=== PATIENT | female | born 1995 | race African-American/Black ===

== ENCOUNTER 2022-01-15 21:08 | Emergency (ER) | payer OTHER, BC, SELFPAY ==
--- NOTE | ~2022-01-15 | XR_ITS ---
EXAMINATION: XR hand RT min 3V INDICATION: Right hand pain TECHNIQUE: Three views of the right hand are obtained. COMPARISON: None available FINDINGS: There is no fracture, dislocation, or subluxation. The bones, soft tissues, and joint space s are normal. IMPRESSION: 1. No acute osseous abnormality. Reviewed, dictated and finalized at location F.
--- NOTE | ~2022-01-15 | XR_ITS ---
EXAMINATION: XR knee RT 2V DATE: 01/15/2022 21:51 INDICATION: Right knee pain TECHNIQUE: Two views of the right knee were obtained. COMPARISON: None. FINDINGS: Alignment is normal. No fracture or osteochondral lesion. Joint spaces are normal with no e rosions. No joint effusion/synovitis. Soft tissues are unremarkable. IMPRESSION: 1. No acute osseous abnormality. Reviewed, dictated and finalized at location F.
--- NOTE | ~2022-01-15 | XR_ITS ---
EXAMINATION: XR tibia fibula LT 2V INDICATION: Left leg pain TECHNIQUE: Two views of the left tibia and fibula are obtained. COMPARISON: None available FINDINGS: There is anterior soft tissue swelling overlying the proximal tibia. There is no fracture, dislocation, or subluxation. The bones and joint spaces are normal. IMPRESSION: 1. No acute osseous abnormality. Reviewed, dictated and finalized at location F.
[2022-01-15 21:10] VITALS: BP 120/72; PULSE 81; RESP 16; TEMP 36.4; O2SAT 100
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
[2022-01-15] MEDS: ACETAMINOPHEN 500 MG TABLET 1000 MG PO (21:39)
[2022-01-15] MEDS: IBUPROFEN 400 MG TABLET 800 MG PO (21:39)
--- NOTE | 2022-01-15 21:41 | PC.NURSE ---
Pt off floor to radiology.
[2022-01-15 22:39] VITALS: BP 115/62; PULSE 78; RESP 18; TEMP 36.9; O2SAT 100
== END 2022-01-15 22:39 | disposition home or self-care (01) ==
PROVIDERS: Emergency Provider Emergency Medicine
DX: S89.91XA Unspecified injury of right lower leg, initial encounter (principal); S69.91XA Unspecified injury of right wrist, hand and finger(s), initial encounter; S89.92XA Unspecified injury of left lower leg, initial encounter; V43.52XA Car driver injured in collision with other type car in traffic accident, initial encounter
CPT/HCPCS: 73130; 73560; 73590; 99284; A9270

== ENCOUNTER 2022-03-02 12:37 | Emergency (ER) | payer BC, SELFPAY ==
--- NOTE | ~2022-03-02 | CT_ITS ---
EXAMINATION: CT soft tissue neck w con DATE: 03/02/2022 14:40 INDICATION: Fever sore throat and right jaw swelling TECHNIQUE: Computed tomography (CT) of the neck was performed with 75 mL Omnipaque-350 intravenous co ntrast. Automated exposure control and iterative reconstruction technique were employed. The dose-neena gth product was 526.92 mGy-cm. COMPARISON: None FINDINGS: 11 mm peripherally enhancing left thyroid nodule. Bilateral submandibular gland enlargement, slightl y greater on the right. Anterior and posterior cervical lymphadenopathy, measuring up to 2.2 cm on t he right (which corresponds roughly to the radiographic marker). Prominent adenoid tissue. Likely mil dly enlarged palatine tonsils. 1.4 cm rim-enhancing fluid density lesion in the left posterior inferi or palatine tonsil. The superior mediastinum is unremarkable. The airway is unremarkable. Parapha ryngeal and pre-glottic fat planes are preserved. Normal arterial enhancement. The orbits are unre markable. Visualized sinuses and mastoid air cells are well aerated. The lungs are clear. IMPRESSION: 1.4 cm abscess in the left posterior inferior palatine tonsil. Anterior and posterior cervical chain lymphadenopathy. Bilateral submandibular gland enlargement. 11 mm left thyroid nodule, consider nonem ergent, outpatient thyroid ultrasound for further evaluation. Results reported telephonically to Dr. Crawley by Dr. Burgos at 3:40 PM on 03/12/2022. Reviewed, dictated and finalized at location K. IMPRESSION: 1.4 cm abscess in the left posterior inferior palatine tonsil. Anterior and pos terior cervical chain lymphadenopathy. Bilateral submandibular gland enlargemen t. 11 mm left thyroid nodule, consider nonemergent, outpatient thyroid ultrasou nd for further evaluation. Results reported telephonically to Dr. Crawley by Dr. Brugos at 3:40 PM on .
[2022-03-02 12:45] VITALS: BP 135/65; PULSE 115; RESP 19; TEMP 38.5; O2SAT 98
[2022-03-02 13:41] LABS: Basophils Percent Auto 0.1 % (0.2-1.2); Hematocrit 31.7 % (37.0-47.0); Hemoglobin 9.5 g/dL (12.0-15.0); Immature Granulocyte Absolute 0.02 K/mm3 (0.00-0.031); Immature Granulocyte Percent A 0.3 % (0-0.5); Lymphocytes Absolute Auto 0.89 K/mm3 (0.9-3.2); Lymphocytes Percent Auto 11.7 % (18.3-44.2); Mean Corpuscular Hemoglobin 23.3 pg (26-34); Mean Corpuscular Volume 77.7 fl (80-100); Mean Platelet Volume 9.8 fl (7.4-10.4); Monocytes Absolute Auto 0.7 K/mm3 (0.1-0.6); Monocytes Percent Auto 9.2 % (2.6-8.5); Neutrophils Percent Auto 78.7 % (45.5-73.1); Platelet Count Result 292 k/mm3 (150-375); Red Blood Count 4.08 M/mm3 (4.2-5.4); White Blood Count 7.6 K/mm3 (4.5-10.0)
[2022-03-02] MEDS: SODIUM CHLORIDE 0.9% IV 1,000 ML 999 ML IV CONT (13:45)
[2022-03-02] MEDS: KETOROLAC 30 MG/ML VIAL (*BKC) IV PUSH (13:46)
[2022-03-02 13:53] LABS: Alanine Aminotransferase 29 U/L (6-35); Albumin Level 4.5 g/dL (3.5-5.1); Alkaline Phosphatase 61 U/L (38-126); Anion Gap 14 mmol/L (8-16); Aspartate Amino Transferase 42 U/L (14-36); Bilirubin,Total 0.4 mg/dL (0.2-1.3); Blood Urea Nitrogen 13 mg/dL (7-17); Calcium 8.6 mg/dL (8.4-10.2); Carbon Dioxide 25 mmol/L (22-30); Chloride 96 mmol/L (98-107); Estimated CRCL calculation 113 ml/min; Estimated Glomerular Filt Rate > 60; Glucose 100 mg/dL (65-110); Lactic Acid Reflex 1.2 mmol/L (0.7-2.0); Potassium 3.4 mmol/L (3.4-5.0); Sodium 135 mmol/L (137-145)
[2022-03-02 14:09] LABS: Monoscreen Negative (Negative); Negative Monotest Control Negative (Negative); Positive Monotest Control Positive (Positive)
--- NOTE | 2022-03-02 14:13 | ED.GENADULT ---
HPI - General Adult General Chief complaint: Upper Respiratory Infection <Nino Crawley MD - Last Filed: 03/02/22 15:57> Stated complaint: fever, swollen tonsils <Nino Crawley MD - Last Filed: 03/02/22 15:57> Time Seen by Provider: 03/02/22 13:06 <Nino Crawley MD - Last Filed: 03/02/22 15:57> Related Data Allergies/adverse reactions: Allergies Allergy/AdvReac Type Severity Reaction Status Date / Time No Known Allergies Allergy Verified 03/02/22 12:59 <Nino Crawley MD - Last Filed: 03/02/22 15:57> Review of Systems Review of Systems: CONST: fever. HEENT: sore throat C/V: No chest pain RESP: No cough GI: No n/v : No dysuria. M/S: No joint pain. SKIN: No rash. NEURO: [No headache or focal numbness or weakness] PSYCH: [No depression] <Fariba Arellano MD - Last Filed: 03/02/22 17:01> Course Course Emergency Course: CT scan showed a 1.5 cm peritonsillar abscess. <Nino Crawley MD - Last Filed: 03/02/22 15:57> Reevaluation(s) Reevaluation #1: signed out to me (Dr Arellano) by Dr Crawley pending ENT eval; ENT cleared her for dc, rec abx and dose pack, f/u with him in clinic. <Fariba Arellano MD - Last Filed: 03/02/22 17:01> Vital Signs Vital signs: Vital Signs Temperature 101.3 F H 03/02/22 12:45 Pulse Rate 115 H 03/02/22 12:45 Respiratory Rate 19 03/02/22 12:45 Blood Pressure 135/65 03/02/22 12:45 Pulse Oximetry 98 03/02/22 12:45 Oxygen Delivery Room Air 03/02/22 12:45 Temperature 101.3 F H 03/02/22 12:45 Pulse Rate 115 H 03/02/22 12:45 Respiratory Rate 19 03/02/22 12:45 Blood Pressure 135/65 03/02/22 12:45 Pulse Oximetry 98 03/02/22 12:45 Oxygen Delivery Room Air 03/02/22 12:45 <Nino Crawley MD - Last Filed: 03/02/22 15:57> Vital Signs Temperature 101.3 F H 03/02/22 12:45 Pulse Rate 115 H 03/02/22 12:45 Respiratory Rate 19 03/02/22 12:45 Blood Pressure 135/65 03/02/22 12:45 Pulse Oximetry 98 03/02/22 12:45 Oxygen Delivery Room Air 03/02/22 12:45 Temperature 101.3 F H 03/02/22 12:45 Pulse Rate 115 H 03/02/22 12:45 Respiratory Rate 19 03/02/22 12:45 Blood Pressure 135/65 03/02/22 12:45 Pulse Oximetry 98 03/02/22 12:45 Oxygen Delivery Room Air 03/02/22 12:45 <Fariba Arellano MD - Last Filed: 03/02/22 17:01> Medical Decision Making Vital Signs Vital Signs: Vital Signs Temperature 101.3 F H 03/02/22 12:45 Pulse Rate 115 H 03/02/22 12:45 Respiratory Rate 19 03/02/22 12:45 Blood Pressure 135/65 03/02/22 12:45 Pulse Oximetry 98 03/02/22 12:45 Oxygen Delivery Room Air 03/02/22 12:45 Temperature 101.3 F H 03/02/22 12:45 Pulse Rate 115 H 03/02/22 12:45 Respiratory Rate 03/02/22 12:45 Blood Pressure 135/65 03/02/22 12:45 Pulse Oximetry 98 03/02/22 12:45 Oxygen Delivery Room Air 03/02/22 12:45 <Nino Crawley MD - Last Filed: 03/02/22 15:57> Vital Signs Temperature 101.3 F H 03/02/22 12:45 Pulse Rate 115 H 03/02/22 12:45 Respiratory Rate 19 03/02/22 12:45 Blood Pressure 135/65 03/02/22 12:45 Pulse Oximetry 98 03/02/22 12:45 Oxygen Delivery Room Air 03/02/22 12:45 Temperature 101.3 F H 03/02/22 12:45 Pulse Rate 115 H 03/02/22 12:45 Respiratory Rate 19 03/02/22 12:45 Blood Pressure 135/65 03/02/22 12:45 Pulse Oximetry 98 03/02/22 12:45 Oxygen Delivery Room Air 03/02/22 12:45 <Fariba Arellano MD - Last Filed: 03/02/22 17:01> Lab Data Result diagrams: : 03/02/22 13:34 03/02/22 13:34 <Nino Crawley MD - Last Filed: 03/02/22 15:57> Labs: Lab Results 03/02/22 03/02/22 03/02/22 Range/Units 13:34 13:34 13:34 WBC 7.6 (4.5-10.0) K/mm3 RBC 4.08 L (4.2-5.4) M/mm3 Hgb 9.5 L (12.0-15.0) g/dL Hct 31.7 L (37.0-47.0) % MCV 77.7 L (80-100
[2022-03-02] MEDS: AMPICILLIN SULB 3 GM/NS 100 ML 3 GM/100 ML VIAL IVPB (16:21)
--- NOTE | 2022-03-02 17:18 | WPDCN ---
Assessment and Plan Assessment and plan (1) Abscess, peritonsillar: Code(s): J36 - Peritonsillar abscess Status: Acute Assessment and Plan: 10 days of Augmentin b.i.d. [id number] Medrol Dosepak take in a.m. follow-up with me if symptoms do not improve within the next 24 hours even though the or the have improved, follow-up if the symptoms worsen at all, follow-up with symptoms worsen after this SA hendrix of antibiotics or with any recurrent episodes. 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 CT demonstrates I believe may be bilateral peritonsillar abscesses left definitely more loculated than right. Patient does report that in the past 10-20 minutes she feels like her swelling has gone down significantly on both sides. Patient has received Decadron as well as Unasyn in the ER. No antibiotics prior to this no recurrent episodes of tonsillitis. Review of Systems Review of Systems: All systems reviewed & are unremarkable except as noted in HPI and below Meds Home Medications and Allergies Home Medications Medication Instructions Recorded Confirmed Type amoxicillin 875 mg-potassium 1 tablet PO Q12H #20 tabs 03/02/22 Rx clavulanate 125 mg tablet methylprednisolone 4 mg tablets in 4 mg PO DAILY #21 ea 03/02/22 Rx a dose pack (Medrol (Teddy)) Allergies Allergy/AdvReac Type Severity Reaction Status Date / Time No Known Allergies Allergy Verified 03/02/22 12:59 Vital Signs Vital Signs - 24 hr 03/02/22 12:45 Temperature 38.5 C H Pulse Rate 115 H Respiratory Rate 19 Blood Pressure 135/65 Pulse Oximetry 98 Oxygen Delivery Room Air Exam Narrative: Normal ENT exam other than bilateral cervical lymphadenopathy tonsillar exudate of large there is no peritonsillar edema the peritonsillar region is soft I have pushed on both with a gloved finger. Patient tolerated the exam Results Labs CBC & Chem 7: 03/02/22 13:34 03/02/22 13:34 Labs: Short CBC 03/02/22 Range/Units 13:34 WBC 7.6 (4.5-10.0) K/mm3 Hgb 9.5 L (12.0-15.0) g/dL Hct 31.7 L (37.0-47.0) % Plt Count 292 (150-375) k/mm3 BMP 03/02/22 13:34 Sodium 135 L Potassium 3.4 Chloride 96 L Carbon Dioxide 25 BUN 13 Creatinine 0.80 Glucose 100 Calcium 8.6 Liver Function 03/02/22 Range/Units 13:34 Total Bilirubin 0.4 (0.2-1.3) mg/dL AST 42 H (14-36) U/L ALT 29 (6-35) U/L Alkaline Phosphatase 61 (38-126) U/L Albumin 4.5 (3.5-5.1) g/dL AMG Consult Billing Observation Consult [id number] New Pt Lvl 3 Detail
[2022-03-02 17:25] VITALS: BP 106/68; PULSE 80; RESP 16; TEMP 36.6; O2SAT 100
== END 2022-03-02 17:25 | disposition home or self-care (01) ==
PROVIDERS: Emergency Medicine; Emergency Provider Emergency Medicine
DX: J36 Peritonsillar abscess (principal)
CPT/HCPCS: 36415; 70491; 80053; 81025; 83605; 85025; 86308; 87081; 87880; 96361; 96365; 96375; 99284; J0131; J0295; J1100; J1885; J7030; Q9967

== ENCOUNTER 2025-02-20 16:02 | Outpatient (CLI) | payer BC, SELFPAY ==
--- NOTE | ~2025-02-20 | CT_ITS ---
CLINICAL INDICATION: Lower abdominal pain COMPARISON: None. TECHNIQUE: Multiple contiguous axial images of the abdomen and pelvis were performed following the ad ministration of with 100 mL Omnipaque-350 intravenous contrast The dose-length product (DLP) was 674.87 mGy-cm. Automated exposure control and iterative reconstruction technique were employed. FINDINGS/OBSERVATIONS: Visualized lower thorax: The bilateral lung bases are clear. The heart is of normal size, without pericardial effusion. Small hiatal hernia is present. Liver: The liver demonstrates homogeneous enhancement and is not enlarged. Gallbladder and biliary system: The gallbladder is only minimally distended, and otherwise unremarkable. Pancreas: The pancreas enhances homogeneously without ductal dilatation. Spleen: The spleen enhances homogeneously and is not enlarged. Kidneys: The bilateral kidneys enhance symmetrically without hydronephrosis or renal calculi. Adrenal glands: Unremarkable. Gastrointestinal tract: Mural thickening with surrounding inflammatory change and multiple diverticula are detected within th e distal descending colon and proximal sigmoid colon. Prominence of the vasa recta is also noted, consistent with acute/early diverticulitis. No surrounding drainable fluid collection or gross perforation is present. Appendix: The air-filled appendix is of normal caliber (axial series, images 135 - 143). Vasculature: Unremarkable. Lymph nodes: No pathologically enlarged or morphologically suspicious lymph nodes within the retroperitoneum or at the root of the mesentery. Pelvic structures: The bladder is distended, and otherwise unremarkable. The uterus is anteverted and anteflexed, and otherwise unremarkable. Prominence of the bilateral ovaries, not an uncommon finding in a patient of this age. Free fluid within the posterior cul-de-sac, likely physiologic. Body wall and musculoskeletal: No significant degenerative disease within the lower thoracic or lumbosacral spine. IMPRESSION: Findings consistent with acute/early diverticulitis of the distal descending/proximal sigmoid colon, without a drainable fluid collection or gross perforation. Reviewed, dictated and finalized at location A. IMPRESSION: Findings consistent with acute/early diverticulitis of the distal descending/pr oximal sigmoid colon, without a drainable fluid collection or gross perforation .
--- OUTSIDE RECORDS SUMMARY | 2025-02-20 16:16 | XMS_ITS | Continuity of Care Document ---
Author Organization [facility] Address [address] [place] [address] [place] [address] Phone Care Team Providers Care Packaging Assembler Name Role Phone Jonathan Salcedo MD Unavailable Unavailable Allergies, Adverse Reactions, Alerts Substance Reaction Status Criticality No Known Allergies Active No Inform ation Medications Medication Instructions Dosage Effective Dates (start - stop) Status Comments Imitrex 50 mg tablet take 1 tablet by oral route as needed 50 MG - Active take one at onset of headache, may repeat x one in two hours ,max 2/24 hours Advance Directives Directive Yes / No Effective Date File Name No Information Encounters Encounter Description Practice Location Reason(s) For Visit Diagnoses Date Provider Providers Copied on Encounter [facility], [address] [place], [id number], tel:[phone] [facility] physical (chief complaint) Encounter for general adult medical exam w abnormal findingsChronic migraine w/ aura, not refractory, w/o status migrainosusLower abdominal painPolycystic ovarian syndrome 5 Matias Castillo. [email or web address] [place], [place], [id number] , [place]. tel:[phone] Family History Family Member Type Diagnosis Age At Onset Father Problem Alive and well Father Problem blood clot Mother Problem Diabetes mellitus Sister Problem Alive and well Mother Problem Hypertension Payers Payer name Insurance type Covered constitution party ID Authoriza tion(s) No Information Social History Type Description Quantity Date Captured Comments Alcohol Use Details Caffeine Use Details Unknown Tobacco Use Status Ex-cigarette smoker 025 Smoking Status Former smoker Smoking Tobacco Use Details Cigarette: Age Started: 20, Age Stopped: 21, Years Used 1 Cigarette: 2 Cigarettes per day, Pack Year: 0.1 Sex Female Vital Signs Date / Time: Height Weight BMI Pulse Rate Blood Pressure Temperature Respiratory Rate Body Surface Area Head Circumference BMI percentile Pulse Ox Inhaled Ox 3:59 PM 64.00 in 201.60 lbs 34.6 0 kg/m eter (2) 86 /min 130/70 mm[Hg] 97.8 F 16 /min Chief Complaint And Reason For Visit From encounter dated '02/20/2025 15:55'. physical (chief complaint). Description: Pt needs annual physical pt c/o throbbing headache behind left eye, around left temporal area for 6 weeks. Pt denies any history of headache in the past pt denies head injury or waking up at night with headache pt denies any blurred vision Pt feels nausea with headache Pt denies any trigger factor. Pt states that headache is not constant and occurs about 5days of out of week. Pt denies any photophobia or any noise induced headache .Pt denies any stress or any sleep issue. Pt never took any mediation for headache. Pt states that headache occurs randomly and last 2-3 hours and goes away gradually .Pt c/o mild cramp pain left lower quadrant since yesterday Pt denies any fever, chill Pt denies any constipation or diarrhea. Pt denies any urinary symptoms. Pt feels clammy Pt c/o dull ache Pt states that her left lower quadrant dull ache is 6/10. Pt denies any fever Pt notices some suppressed appetite as well Plan Of Treatment Date Type Action Status Referral Ordered: CT ABDOMEN&PELVIS W/CONTRAST ordered History Of Present Illness Encounter Date Complaint History Of Prese nt Illness physical Pt needs annual physical pt c/o throbbing headache behind left eye, around left temporal area for 6 weeks. Pt denies any history of headache in the past pt denies head injury or waking up at night with headache pt denies any blurred vision Pt feels nausea with headache Pt denies any trigger factor. Pt states that headache is not constant and occurs about 5 days of out of week. Pt denies any photophobia or any noise induced headache .Pt denies any stress or any sleep issue. Pt never took any mediation for headache. Pt states that headache occurs randomly and last 2-3 hours and goes away gradually .Pt c/o mild cramp pain left lower quadrant since yesterday Pt denies any fever, chill Pt denies any constipation or diarrhea. Pt denies any urinary symptoms. Pt feels clammy Pt c/o dull ache Pt states that her left lower quadrant dull ache is 6/10. Pt denies any fever Pt notices some suppressed appetite as well Instructions Date Instruction Additional Infor mation No Information Assessments Type Assessment Date assessment Encounter for general adult medi [facility] exam w abnormal findings assessment Chronic migraine w/ aura, not refractory, w/o status migrainosus assessment Lower abdominal pain assessment Polycystic ovarian syndrome Mental Status Date Cognitive Assessment Orientation - Lawn ed to time, place, person, situation.
--- OUTSIDE RECORDS SUMMARY | 2025-02-20 16:19 | XMS_ITS | Referral Summary ---
Author Organization [facility] Care Team Providers Care Sales And Service Consultant Name Role Phone No, Physician Primary Care Provider [phone] Allergies No known active allergies Medications metroNIDAZOLE (METROGEL) 0.75 % (37.5mg/5 gram) vaginal gelIndications: Bacterial Vaginosis Apply to vagina nightly for 5 nights. 70 g 11/08/2024 Active Active Problems No known active problems Social History Tobacco Use Types Packs/Day Years Used Date Smoking Tobacco: Never Smokeless Tobacco: Never Tobacco Cessation:Counseling Given: Not Answered Comments No Sex and Gender Information Value Date Recorded Sex Assigned at Not on file Legal Sex Female 8:25 PM MARKETING TEAM LEAD Gender Identity Not on file Sexual Orientation Not on file Last Filed Vital Signs Vital Sign Reading Time Taken Comments Blood Pressure 114/78 11/07/2024 3:33 PM CDT Pulse 93 11/07/2024 3:33 PM CDT Temperature 36.8 C (98.2 F) 11/07/2024 3:33 PM CDT Respiratory Rate 18 11/07/2024 3:33 PM CDT Oxygen Saturation 99% 11/07/2024 3:33 PM CDT Inhaled Oxygen Concentration - - Weight 91.6 kg (202 lb) 11/07/2024 3:33 PM CDT Height 165.1 cm (5' 5) 06/02/2024 1:38 PM MARKETING TEAM LEAD Body Mass Index 33.61 06/02/2024 1:38 PM MARKETING TEAM LEAD Plan of Treatment Not on file Procedures Procedure Name Priority Date/Time Associated Diagnosis Comments HEPATITIS PANEL, ACUTE Routine 11/07/2024 3:47 PM CDT Screening for STD (sexually transmitted disease) HIGH RISK HPV DNA DETECTION WITH GENOTYPING Routine 06/02/2024 1:41 PM MARKETING TEAM LEAD Encounter for annual routine gynecological examination Screen for STD (sexually transmitted disease) from Last 3 Months or Most Recently Relevant to Health Maintenance Results * Hepatitis panel, acute Blood (11/07/2024 3:47 PM CDT) Hep A IgM Nonreactive Nonreactive Comment: Interpretive Data: If Hep A IgM Ab is reported as Equivocal, a new sample should be drawn in two weeks for testing. Current interpretive data was last revised on 19. Hep B core IgM Nonreactive Nonreactive [facility] Comment: Interpretive Data If HepB Core IgM Ab is reported as Equivocal, a new sample should be drawn in two weeks for testing. Current interpretive data was last revised on 19. Hep C Ab Nonreactive Nonreactive [facility] Comment: Interpretive Data Nonreactive: Antibodies to HCV not detected. Does NOT exclude the possibility of recent exposure to HCV. Equivocal: Equivocal for HCV antibodies. Supplemental molecular testing will be automatically performed to determine infection status in accordance with current CDC screening recommendations. Reactive: Positive for HCV antibodies. This may represent current or past HCV infection. Supplemental molecular testing will be automatically performed to determine current infection status in accordance with current CDC screening recommendations. Interpretive data was last revised on 2019. HepBsAg Nonreactive Nonreactive [facility] Blood 11/07/2024 3:47 PM CDT 11/07/2024 9:58 PM CDT us Micki Julio NP LAB MICROBIOLOGY - GENERAL ORDERABLES Final Result [facility] [id number] Department [place] [address] * High Risk HPV DNA Detection with Genotyping (Molecular component) (06/02/2024 1:41 PM MARKETING TEAM LEAD) HPV HR 16 Not Detected Not Detected [facility] Comment:Testing performed by : [facility], [address] [place] [address] HPV HR 18 Not Detected Not Detected WILL BALDERAS Comment:Testing performed by : [facility], [address] [place]., [address] HPV HR Non 16/18 Not Detected Not Detected WILL BALDERAS Comment: Interpretive Data Nucleic acid amplification for detection of high-risk Human Papilloma virus (HPV) is performed by the Mague Romie 6800 HPV test. This assay specifically detects HPV-16 and HPV-18 genotypes. The following HPV genotypes are detected as high-risk HPV: HPV-31, 33, 35, ,39, 45, 51, 52, 56, 58, 59, 66, and 68. This assay has been approved by the [place] Food and Drug Administration for detection of HPV in cervical specimens collected by a physician using an endocervical brush/spatula or cervical broom and placed in the ThinPrep Pap Test PreservCyt collection containers. The performance characteristics of this test have been verified by the [facility] Molecular Infectious Disease laboratory. Correlate with separately reported cytology results, as applicable. Interpretive data last revised 23 Testing performed by: [facility], [address] [place]., [address] Endocervical 06/02/2024 1:41 PM MARKETING TEAM LEAD 06/02/2024 11:07 PM MARKETING TEAM LEAD Narrative WILL - 06/06/2024 2:17 AM MARKETING TEAM LEAD Clinical history and diagnosis->05/25/22 wnl Number of vials->1 Testing type->Screening Last menstrual period (date if known)->05/01/24 Contraceptive use->None Sofia Ryder NP LAB BODY FLUIDS AND STOOLS O RDERABLES Final Result WILL BALDERAS [address] [facility] Department [place] [address] [facility] from Last 3 Months or Most Recently Relevant to Health Maintenance Insurance [facility] [employer] [facility] [employer] Care Teams Sales And Service Consultant Relationship Specialty Start Date End Date No, Physician PCP - General 04/19/24
--- OUTSIDE RECORDS SUMMARY | 2025-02-20 16:19 | XMS_ITS | Clinical Summary ---
Author Organization [facility] Care Team Providers Care Manager Mechanical Maintenance Name Role Phone No, Physician Primary Care Provider [phone] Allergies No known active allergies Medications metroNIDAZOLE (METROGEL) 0.75 % (37.5mg/5 gram) vaginal gelIndications: Bacterial Vaginosis Apply to vagina nightly for 5 nights. 70 g 11/08/2024 Active Active Problems No known active problems Family History Medical History Relation Name Comments Breast cancer Neg Hx Social History Tobacco Use Types Packs/Day Years Used Date Smoking Tobacco: Never Smokeless Tobacco: Never Tobacco Cessation:Counseling Given: Not Answered Comments No Sex and Gender Information Value Date Recorded Sex Assigned at Not on file Legal Sex Female 8:25 PM [employer]UIT WORK[employer] Gender Identity Not on file Sexual Orientation Not on file Obstetrics History Para Term AB IAB SAB Ectopic Multiple Livin g Live Births 0 0 0 0 0 0 0 0 0 0 0 Last Filed Vital Signs Vital Sign Reading [...] 165.1 cm (5' 5) 06/02/2024 1:38 PM [employer]UIT WORKER Body Mass Index 33.61 06/02/2024 1:38 PM FRUIT WORKER Plan of Treatment Health Maintenance Due Date Last Done Comments Depression Screening 1997 Regular Well Visit/Exam 18-64 2015 DTaP/Tdap/Td Vaccine (7 - Td or Tdap) 01/08/2018 01/09/2008, 10/30/2002, 10/30/2002, Additional history exists Influenza Vaccine (#1) 2025 04/22/2015, 2004 Cervical Cancer Screening 06/02/2025 06/02/2024, 02/2024 Hepatitis B Screening Completed 03/10/1999 , 1997, 1997 Varicella Vaccines Completed 01/09/2008, 03/15/2002 HPV Vaccines Completed 04/02/2011, 09/24, 03/12/2009 Hepatitis C Screening Completed 11/07/2024 Pneumococcal vaccine <65 Aged Out No longer eligible based on patient's age to complete this topic Procedures Procedure Name Priority Date/Time Associated Diagnosis Comments HEPATITIS PANEL, ACUTE Routine 11/07/2024 3:47 PM CDT Screening for STD (sexually transmitted disease) HIGH RISK HPV DNA DETECTION WITH GENOTYPING Routine 06/02/2024 1:41 PM FRUIT WORKER Encounter for annual routine gynecological examination Screen [...] 19. Hep B core IgM Nonreactive Nonreactive [facility] Comment: Interpretive Data If HepB Core IgM Ab is reported as Equivocal, a new sample should be drawn in two weeks for testing. Current interpretive data was last revised on 19. Hep C Ab Nonreactive [facility] Comment: Interpretive Data Nonreactive: Antibodies to [...] last revised on 2019. HepBsAg Nonreactive Nonreactive [facility] Blood 11/07/2024 3:47 PM CDT 11/07/2024 9:58 PM CDT Micki Julio NP LAB MICROBIOLOGY - GENERAL ORDERABLES Final Result [facility] [id number] Department [place] [address] * High Risk HPV DNA Detection with Genotyping (Molecular component) (06/02/2024 1:41 PM FRUIT WORKER) HPV HR 16 Not Detected Not Detected [facility] Comment:Testing performed by : [facility], [address] [place] [address]., [id number] HPV HR 18 Not Detected Not Detected [facility] Comment:Testing performed by : [facility], [address] [place]., [id number] HPV HR Non 16/18 Not Detected Not Detected [facility] Comment: Interpretive Data Nucleic acid amplification for [...] this test have been verified by the [facility] Molecular Infectious Disease laboratory. Correlate with separately reported cytology results, as applicable. Interpretive data last revised 23 Testing performed by: [facility], [address] [place]., [id number] Endocervical 06/02/2024 1:41 PM FRUIT WORKER 06/02/2024 11:07 PM FRUIT WORKER Narrative WILL BALDERAS - 06/06/2024 2:17 AM FRUIT WORKER Clinical history and diagnosis->05/25/22 wnl Number of vials->1 Testing type->Screening Last menstrual period (date if known)->05/01/24 Contraceptive use->None us Sofia Ryder [employer] LAB BODY FLUIDS AND STOOLS O RDERABLES Final Result [facility] [address] [facility] [place] [address] [facility] from Last 3 Months or Most Recently Relevant to Health Maintenance Insurance [employer] Care Teams Manager Mechanical Maintenance Relationship Specialty Start Date End Date No, Physician PCP - General 04/19/24
--- OUTSIDE RECORDS SUMMARY | 2025-02-20 16:19 | XMS_ITS | Data Portability ---
Author Organization [facility] Address [address] [place] [address] Assessment No assessment recorded. Plan of Treatment Reminders Order Date Submit Date Provider Last Modified By Organization Details Last Modified Time Details Appointments None recorded. Lab bacterial vaginosis + vaginitis panel, vaginal 2015 016 [facility], [address] [place] [address], [address], [place], [address], 6 14:44:00 test, urine 2014 015 [email or web address] 23 In-Office Order, Internal Use Only DO Not Attach Compendium DO Not Attach Compendium, Do Not Delete/merge, [id number] 5 17:00:03 test, urine 2014 015 [email or web address] 23 In-Office Order, Internal Use Only DO Not Attach Compendium DO Not Attach Compendium, Do Not Delete/merge, [id number] 5 15:13:27 Referral None recorded. Procedures None recorded. Surgeries None recorded. Imaging None recorded. Medication Orders Diflucan 150 mg tablet 2015 016 [email or web address] 23 [id number], [address], [place], [address], 6 08:33:16 Flagyl 500 mg tablet 2015 016 [email or web address] 23 [id number], [address], [place], [address], 6 08:33:16 azithromyci n 250 mg tablet 2014 015 [email or web address] [id number], [address] , [place], [address], 5 14:11:54 Diflucan 150 mg tablet 2014 015 [email or web address] [facility], [address] , [place], [address], 5 14:11:54 Patient TargetsNo targets recorded. Patient Instructions Encounter Date Encounter Id Patient Instructions Last Modified By Organization Details Last Modified Time 12/19/2014 [id number] candidiasis: car e instructions [email or web address] Not available 12/21/2014 14:45:04 01/16/2015 [id number] intrauterine device (IUD) insertion: care instructions [email or web address] Not available 01/16/2015 16:35:57 08/20/2015 [id number] candidiasis: car e instructions [email or web address] Not available 08/22/2015 08:33:16 bacterial vaginosis in teens: care instructions [email or web address] Not available 08/22/2015 08:33:16 Reason for Referral None Reported. Results Created Date Observation Date Name Description Value Unit Range Abnormal Flag Note LastModifiedBy Organization Detail LastModifiedTime 01/17/20 15 01/16/2015 pregn porsche test, urine HCG negati ve Not Available In-Office Order Internal Use Only DO Not Attach Compendium DO Not Attach Compendium, Do Not Delete/merge, [id number] 01/16/2015 15:10:21 01/03/20 15 01/02/2015 pregn porsche test, urine HCG negati ve Not Available In-Office Order Internal Use Only DO Not Attach Compendium DO Not Attach Compendium, Do Not Delete/merge, [id number] 01/02/2015 14:11:54 11/30/19 15 11/29/2014 pregn porsche test, urine HCG negati ve Not Available In-Office Order Internal Use Only DO Not Attach Compendium DO Not Attach Compendium, Do Not Delete/merge, [id number] 11/29/2014 16:47:11 11/30/19 15 11/30/2014 HIV (1+O+ 2) Ab, serum HIV 1/O/2 abs-index value <1.00 <1.00 INDEX VALUE : SPECI MEN REACT IVITY RELAT CAROLIN TO THE NEGAT CAROLIN CUTOF F. Not Available [facility] ([facility]) [address] [facility], [place], [address], 11/30/2014 06:10:41 11/30/19 15 11/30/2014 HIV (1+O+ 2) Ab, serum HIV 1/O/2 abs, qual NON REACTI VE non reacti ve Not Available [facility] ([facility]) [address] [facility], [place], [address], 11/30/2014 06:10:41 11/30/19 15 11/29/2014 hepat itis C Ab, signa l-to- cutof f, serum or plasm a comment: COMMEN T NON REACT CAROLIN HCV ANTIB TONJA SCREE N IS CONSI STENT WITH NO HCV INFEC TION, UNLES S RECEN T INFEC TION IS SUSPE CTED OR OTHER EVIDE NCE EXIST S TO INDIC ATE HCV INFEC TION. Not Available [facility] ([facility]) [address] [facility], [place], [address], 11/30/2014 06:10:41 11/30/19 15 11/30/2014 hepat itis C Ab, signa l-to- cutof f, serum or plasm a HCV Ab <0.1 S/co_ ratio 0.0-0. 9 Not Available [facility] ([facility]) [address] [facility], [place], [address], 11/30/2014 06:10:41 11/30/1911/30/2014 RPR (rapi d plasm a reagi n), serum RPR NON REACTI VE non reacti ve Not Available [facility] ([facility]) [address] [facility], [place], [address], 11/30/2014 07:43:13 11/30/192015 HBsAg (hepa titis B surfa ce Ag), EIA, serum HBsAg screen NEGATI VE negati ve Not Available [facility] ([facility]) [address] [place], [address], 11/30/2014 06:10:42 11/30/19 15 11/30/[address] probl em request problem REFERT PLEAS E REFER TO THE FOLLO WING SPECI MEN FOR ADDIT IONAL LAB RESUL TS. TEST: 25289 4 PANEL 54501 4 41941 5 HCV AB W/[place] [address] 2 RPR 44366 0 HBSAG SCREE N SEE: 127-3 36-02 88-0 Not Available [facility] ([facility]) [address] [place], [address], 11/30/2014 09:50:27 11/30/19 15 12/01/2014 bacte rial vagin osis + vagin itis panel , vagin al chlamydia trachomatis, ELISA POSITI VE negati ve abnormal Not Available [facility] ([facility]) [address] [place], [address], 12/02/2014 06:10:14 11/30/19 15 12/01/2014 bacte rial vagin osis + vagin itis panel , vagin al neisseria gonorrhoeae, ELISA NEGATI VE negati ve Not Available [facility] ([facility]) [address] [place], [address], 12/02/2014 06:10:14 11/30/19 15 12/01/2014 bacte rial vagin osis + vagin itis panel , vagin al chlamydia trachomatis, ELISA POSITI VE negati ve abnormal Not Available [facility] ([facility]) [address] [place], [address], 12/02/2014 18:36:38 11/30/19 15 12/01/2014 bacte rial vagin osis + vagin itis panel , vagin al neisseria gonorrhoeae, ELISA NEGATI VE negati ve Not Available [facility] ([facility]) [address] [facility], [place], [address], 12/02/2014 18:36:38 11/30/1912/02/2014 bacte rial vagin osis + vagin itis panel , vagin al atopobium vaginae MODERA TE - 1 score Not Available [facility] ([facility]) [address] [facility], [place], [address], 12/02/2014 18:36:38 11/30/19 15 12/02/2014 bacte rial vagin osis + vagin itis panel , vagin al bvab 2 LOW - 0 score Not Available [facility] ([facility]) [address] [facility], [place], [address], 12/02/2014 18:36:38 11/30/1912/02/2014 bacte rial vagin osis + vagin itis panel , vagin al megasphaera 1 LOW - 0 score CALCU LATE TOTAL SCORE BY JAY Choudhury THE 3 INDIV IDUAL BACTE RIAL VAGIN OSIS (BV) MARKE R SCORE S TOGET HER. TOTAL SCORE IS INTER PRETE D FOLLO WS: . TOTAL SCORE 0-1: INDIC ATES THE ABSEN CE OF BV. TOTAL SCORE 2: INDET ERMIN ATE FOR BV. ADDIT IONAL CLINI CHRISSY DATA SHOUL D BE EVALU ATED TO ESTAB ALINA A DIAGN OSIS. TOTAL SCORE 3-6: INDIC ATES THE PRESE NCE OF BV. . THIS TEST WAS DEVEL OPED AND ITS PERFO RMANC E DILCIA CTERI STICS DETER MINED BY [facility]. IT HAS NOT BEEN CLEAR ED OR APPRO JOHNNY BY THE FOOD AND DRUG ADMIN ISTRA TION. THE FDA HAS DETER MINED THAT SUCH CLEAR ANCE OR APPRO MICAELA IS NOT NECES YOANDY. Not Available [facility] ([facility]) [address] [facility], [place], [address], 12/02/2014 18:36:38 11/30/1912/02/2014 bacte rial vagin osis + vagin itis panel , vagin al bertha albicans, ELISA POSITI VE negati ve abnormal Not Available [facility] ([facility]) [address] [place], [address], 12/02/2014 18:36:38 11/30/19 15 12/02/2014 bacte rial vagin osis + vagin itis panel , vagin al bertha glabrata, ELISA NEGATI VE negati ve THIS TEST WAS DEVEL OPED AND ITS PERFO RMANC E DILCIA CTERI STICS DETER MINED BY [facility]. IT HAS NOT BEEN CLEAR ED OR APPRO JOHNNY BY THE FOOD AND DRUG ADMIN ISTRA TION. THE FDA HAS DETER MINED THAT SUCH CLEAR ANCE OR APPRO MICAELA IS NOT NECES YOANDY. Not Available [facility] ([facility]) [address] [place], [address], 12/02/2014 18:36:38 11/30/19 15 12/02/2014 bacte rial vagin osis + vagin itis panel , vagin al trich vag by ELISA NEGATI VE negati ve Not Available [facility] ([facility]) [address] [place], [address], 12/02/2014 18:36:38 01/03/20 15 01/05/2015 bacte rial vagin osis + vagin itis panel , vagin al trich vag by ELISA NEGATI VE negati ve Not Available [facility] ([facility]) [address] [place], [address], 01/10/2015 14:44:35 01/03/20 15 01/05/2015 bacte rial vagin osis + vagin itis panel , vagin al neisseria gonorrhoeae, ELISA NEGATI VE negati ve Not Available [facility] ([facility]) [address] [place], [address], 01/10/2015 14:44:35 01/03/20 15 01/06/2015 bacte rial vagin osis + vagin itis panel , vagin al atopobium vaginae HIGH - 2 score abnormal Not Available [facility] ([facility]) [address] [facility], [place], [address], 01/10/2015 14:44:35 01/03/20 15 01/06/2015 bacte rial vagin osis + vagin itis panel , vagin al bvab 2 LOW - 0 score Not Available [facility] ([facility]) [address] [facility], [place], [address], 01/10/2015 14:44:35 01/03/20 15 01/06/2015 bacte rial vagin osis + vagin itis panel , vagin al megasphaera 1 LOW - 0 score CALCU LATE TOTAL SCORE BY JAY Choudhury THE 3 INDIV IDUAL BACTE RIAL VAGIN OSIS (BV) MARKE R SCORE S TOGET HER. TOTAL SCORE IS INTER PRETE D FOLLO WS: TOTAL SCORE 0-1: INDIC ATES THE ABSEN CE OF BV. TOTAL SCORE 2: INDET ERMIN ATE FOR BV. ADDIT IONAL CLINI CHRISSY DATA SHOUL D BE EVALU ATED TO ESTAB ALINA A DIAGN OSIS. TOTAL SCORE 3-6: INDIC ATES THE PRESE NCE OF BV. THIS TEST WAS DEVEL OPED AND ITS PERFO RMANC E DILCIA CTERI STICS DETER MINED BY [facility]. IT HAS NOT BEEN CLEAR ED OR APPRO JOHNNY BY THE FOOD AND DRUG ADMIN ISTRA TION. THE FDA HAS DETER MINED THAT SUCH CLEAR ANCE OR APPRO MICAELA IS NOT NECES YOANDY. Not Available [facility] ([facility]) [address] [facility], [place], [address], 01/10/2015 14:44:35 01/03/2001/06/2015 bacte rial vagin osis + vagin itis panel , vagin al bertha albicans, ELISA POSITI VE negati ve abnormal Not Available [facility] ([facility]) [address] [place], [address], 01/10/2015 14:44:35 01/03/20 15 01/06/2015 bacte rial vagin osis + vagin itis panel , vagin al bertha glabrata, ELISA NEGATI VE negati ve THIS TEST WAS MONTY PICHARDO AND ITS PERFO ROSAMARIA E DILCIA DILLONRI STICS DETER MINED BY [facility]. IT HAS NOT BEEN CLEAR ED OR APPRO JOHNNY BY THE FOOD AND DRUG ADMIN ISTRA TION. THE FDA HAS DETER MINED THAT SUCH CLEAR ANCE OR APPRO MICAELA IS NOT NECES YOANDY. Not Available [facility] ([facility]) [address] [place], [address], 01/10/2015 14:44:35 01/03/20 15 01/10/2015 bacte rial vagin osis + vagin itis panel , vagin al chlamydia trachomatis, ELISA NEGATI VE negati ve Not Available [facility] ([facility]) [address] [place], [address], 01/10/2015 14:44:35 08/20/19 16 08/24/2015 bacte rial vagin osis + vagin itis panel , vagin al trich vag by ELISA NEGATI VE negati ve Not Available [facility] ([facility]) [address] [place], [address], 08/26/2015 14:44:00 08/20/19 16 08/24/2015 bacte rial vagin osis + vagin itis panel , vagin al chlamydia trachomatis, ELISA NEGATI VE negati ve Not Available [facility] ([facility]) [address] [place], [address], 08/26/2015 14:44:00 08/20/19 16 08/24/2015 bacte rial vagin osis + vagin itis panel , vagin al neisseria gonorrhoeae, ELISA NEGATI VE negati ve Not Available [facility] ([facility]) [address] [place], [address], 08/26/2015 14:44:00 08/20/19 16 08/26/2015 bacte rial vagin osis + vagin itis panel , vagin al atopobium vaginae HIGH - 2 score abnormal Not Available [facility] ([facility]) [address] [place], [address], 08/26/2015 14:44:00 08/20/19 16 08/26/2015 bacte rial vagin osis + vagin itis panel , vagin al bvab 2 LOW - 0 score Not Available [facility] ([facility]) [address] [place], [address], 08/26/2015 14:44:00 08/20/19 16 08/26/2015 bacte rial vagin osis + vagin itis panel , vagin al megasphaera 1 HIGH - 2 score abnormal CALCU LATE TOTAL SCORE BY JAY G THE 3 INDIV IDUAL BACTE RIAL VAGIN OSIS (BV) MARKE R SCORE S TOGET HER. TOTAL SCORE IS INTER PRETE D FOLLO WS: TOTAL SCORE 0-1: INDIC ATES THE ABSEN CE OF BV. TOTAL SCORE 2: INDET ERMIN ATE FOR BV. ADDIT IONAL CLINI CHRISSY DATA SHOUL D BE EVALU ATED TO ESTAB ALINA A DIAGN OSIS. TOTAL SCORE 3-6: INDIC ATES THE PRESE NCE OF BV. THIS TEST WAS DEVEL OPED AND ITS PERFO RMANC E DILCIA CTERI STICS DETER MINED BY [facility]. IT HAS NOT BEEN CLEAR ED OR APPRO JOHNNY BY THE FOOD AND DRUG ADMIN ISTRA TION. THE FDA HAS DETER MINED THAT SUCH CLEAR ANCE OR APPRO MICAELA IS NOT NECES YOANDY. Not Available [facility] ([facility]) [address] [facility], [place], [address], 08/26/2015 14:44:00 08/20/19 16 08/26/2015 bacte rial vagin osis + vagin itis panel , vagin al bertha albicans, ELISA POSITI VE negati ve abnormal Not Available [facility] ([facility]) [address] [facility], [place], [address], 08/26/2015 14:44:00 08/20/19 16 08/26/2015 bacte rial vagin osis + vagin itis panel , vagin al bertha glabrata, ELISA NEGATI VE negati ve THIS TEST WAS DEVEL OPED AND ITS PERFO RMANC E DILCIA CTERI STICS DETER MINED BY [facility]. IT HAS NOT BEEN CLEAR ED OR APPRO JOHNNY BY THE FOOD AND DRUG ADMIN ISTRA TION. THE FDA HAS DETER MINED THAT SUCH CLEAR ANCE OR APPRO MICAELA IS NOT NECES YOANDY. Not Available [facility] ([facility]) [address] [facility], [place], [address], 08/26/2015 14:44:00 Result Notes None recorded. Problems Name Problem SNOMED Code Status Onset Date Resolution Date Notes Provider Name and Address Organization Details Recorded Time Onychomycosis 698659810 Active Jennifer Le null, [place] - [facility] 6 11:50:05 Menorrhagia 080230757 Active [place] [facility] 6 11:50:05 Chlamydial vulvovaginitis 094427157 Active [place] Le [place], [place] [facility] 6 11:50:05 Candidal vulvovaginitis 92796137 Active Dipika Hernandez [place], [place] - [facility] 6 08:33:16 Bacterial vaginosis 083102932 Active Dipika [place], [place] - [facility] 6 08:33:16 Problem Notes None recorded. Procedures Surgical History Date Name Laterality Status Provider Name and Address Organization Details Recorded Time 5 IUD Insertion completed Dipika Hernandez [place] - [facility] 01/16/2015 16:22:17 Imaging Results None recorded. Procedure Notes None recorded. Medical Equipment None Reported. Allergies No known drug allergies Medications Name Sig Start Date Stop Date Status Note LastModified by Organization Details LastModified Time medroxyproge sterone 10 mg tablet Take 1 tablet every day by oral route start on 09/10/14 for 14 days. active Not Available Not Available No t Available Mirena 21 mcg/24 hr (up to 8 years) 52 mg intrauterine device Take by intrauterin e route. 2014 active Not Available Not Available Not Avai lable azithromycin 250 mg tablet Take 4 tablets by mouth once active Not Available Not Available N ot Available prednisone 20 mg tablet active Not Available Not Available Not Available Diflucan 150 mg tablet Take 1 tablet by oral route. 2015 active Not Available Not Available Not Avai lable Flagyl 500 mg tablet Take 1 tablet twice a day by oral route. 2015 active Not Available Not Available Not Avai lable Junie-PEG (ultramicros ize) 250 mg tablet Take 1 tablet 3 times a day by oral route with meals for 30 days. 2014 active Not Available Not Available Not Avai lable griseofulvin microsize 125 mg/5 mL oral suspension Take 10 mL 3 times a day by oral route for 30 days. active Not Available Not Available No t Available montelukast 10 mg tablet active Not Available Not Available Not Available Ventolin HFA 90 mcg/actuatio n aerosol inhaler active Not Available Not Available Not Available Vitals Date Recorded Body height Body mass index (BMI) Body weight Systolic And Diastolic Provider Name and Address Organization Details Last Updated DateTime 08/20/2015 165.1 cm 24.1 kg/m2 95615.456 702 g 110/70 mm[Hg] Jennifer Rey [facility] 08/20/2015 11:42:04 Date Recorded Body height Body mass index (BMI) Body weight Systolic And Diastolic Provider Name and Address Organization Details Last Updated DateTime 12/19/2014 165.1 cm 21.9 kg/m2 61723.037 418 g 112/64 mm[Hg] Adela Franco MA [facility] 12/19/2014 17:14:47 Date Recorded Body height Body mass index (BMI) Body weight Systolic And Diastolic Provider Name and Address Organization Details Last Updated DateTime 01/02/2015 165.1 cm 21.8 kg/m2 74160.318 944 g 108/62 mm[Hg] Rita Joyce LPN [facility] 01/02/2015 14:11:54 Date Recorded Body height Body mass index (BMI) Body weight Systolic And Diastolic Provider Name and Address Organization Details Last Updated DateTime 01/16/2015 165.1 cm 21.8 kg/m2 63328.678 181 g 100/62 mm[Hg] Adela Franco MA [facility] 01/16/2015 15:10:21 Date Recorded Body height Body mass index (BMI) Body weight Systolic And Diastolic Provider Name and Address Organization Details Last Updated DateTime 03/19/2015 165.1 cm 22.8 kg/m2 78006.154 69 g 116/74 mm[Hg] Adela Franco MA [facility] 03/19/2015 16:05:40 Social History Question Answer Notes LastModified by Organizat ion Details LastModified Time Tobacco Smoking Status Never Smoker Carole Santos MA [facility], [facility] 09/06/2014 09:50:10 Animal Exposure? Yes 1 Cat [email or web address] Information not available 09/06/2014 Do You Wear A Helmet When Biking? No [email or web address] Information not available 09/06/2014 Is Blood Transfusion Acceptable In An Emergency? No Information not available 11/29/2014 What Is Your Level Of Caffeine Consumption? Occasional [email or web address] Information not available 09/06/2014 What Type Of Surface Supply Breathing Apparatus Do You Use? None Information not available 09/06/2014 What Type Of Diet Are You Following? REGULAR Not Big On Veggies [email or web address] Information not available 09/06/2014 Which Illicit Or Recreational Drugs Have You Used? No Information not available 11/29/2014 Education 12 Information no t available 03/19/2015 Have There Been Any Changes To Your Family Or Social Situation? No [email or web address] Information not available 09/06/2014 Are There Any Guns Present In Your Home? No [email or web address] Information not available 09/06/2014 What Is Your Home Situation? Mother [email or web address] Information not available 09/06/2014 Do You Use Insect Repellent Routinely? Yes [email or web address] Information not available 09/06/2014 Live Alone Or With Others? With Others Information not available 11/29/2014 Car Seat Type Or Seat Belt? Seat Belt Information not available 09/06/2014 Parent Involvement? Both Parents Involved [email or web address] Information not available 09/06/2014 Riding In Car Front Seat? Yes [email or web address] Information not available 09/06/2014 How Many Children Do You Have? 0 Information not available 11/29/2014 What Is Your Parents' Marital Status? [email or web address] Information not available 09/06/2014 Performs Monthly Self-breast Exam? Yes Information not available 08/20/2015 Pool Exposure Yes Informatio n not available 09/06/2014 Do You Use Protection During Sex? No Information not available 08/20/2015 What Is Your Relationship Status? Single Information not available 11/29/2014 What Is The Name Of Your School? [employer] [email or web address] Information not available 09/06/2014 Seat Belts Used Routinely Yes Information not available 11/29/2014 Are You Sexually Active? Yes Information not available 11/29/2014 Do You Have Any Siblings? 1 Sister Information not available 09/06/2014 Do You Have Smoke And Carbon Monoxide Detectors In Your Home? Yes [email or web address] Information not available 09/06/2014 Are You Passively Exposed To Smoke? No [email or web address] Information not available 09/06/2014 How Much Tobacco Do You Smoke? No Information not available 11/29/2014 What Types Of Sporting Activities Do You Participate In? None [email or web address] Information not available 09/06/2014 General Stress Level Low Information not available 08/20/2015 Do You Use Sunscreen Routinely? No Information not available 08/20/2015 Year In School 11 [email or web address] Informati on not available 09/06/2014 Sex: Unknown Functional Status Question Answer Note LastModified by Organizat ion Details LastModified Time What is your level of alcohol consumption? Occasional Information not available 11/29/2014 Are you currently employed? Yes Information not available 08/20/2015 What is your exercise level? None [email or web address] Information not available 09/06/2014 Mental Status Question Answer Note LastModified by Organization D etails LastModified Time Are you or have you been involved with bullying? No [email or web address] Information not available 09/06/2014 Family History Relationship Description Onset Age of this Age Resolved Age Notes LastModified by Organization Details LastModified Time Mother Arthritis Not available 08/20/2015 11:50:27 Mother Diabetes mellitus Not available 2015 11:50:27 Mother Hypertensive disorder Not available 2015 11:50:27 Maternal Grandmother Heart disease Not available 2015 11:50:27 Maternal Grandmother Hypertensive disorder Not available 2015 11:50:27 Maternal Grandmother Cerebrovascu lar accident Not available 11:50:27 Maternal Grandmother Diabetes mellitus Not available 2015 11:50:27 Medical History Condition Response Other N Blood Diseases N Breast Cancer N Depression N Lung Disease N Developmental or Behavioral Disorders N Breast Problem N Premature N Anesthesia Complications N Headaches/Migraines N Anxiety Disorder N Muscle, Joint, or Bone Problems N Vision or Eye Problems N Arthritis N Head Injury/Concussion N Polyps N Infertility N Acid Reflux (GERD) N Cancer N Stroke N ADHD N Endometriosis N Bladder or Kidney Problems N High Cholesterol N Fibromyalgia N Headaches N Kidney Disease N Heart Problems N Ear or Hearing Problems N Thyroid Problems N Kidney or Bladder Problems N GI Problems N Acne N Skin Problems N Eating Disorder N Anemia N Constipation N Ovarian Cancer N Diabetes N Bedwetting N Blood Transfusions N Seizures/Epilepsy N Heart Problems/Murmur N Abuse/Domestic Violence N Asthma N Allergies N Hepatitis N Heart Disease N Pre-Eclampsia N Hypertension N Osteoporosis N Chicken Pox N Autism Spectrum Disorder (ASD) N Gynecological History Statement/Question Response Flow Light Frequency of Cycle (Q days) Sexually Active? Y Menses Monthly N STIs/STDs Y HPV Vaccine Y Sexual Problems? N Age at Menarche 13 Current Control Method IUD LMP Definite Obstetrics History GPAL:G 0 P 0 0 0 0 Type Value Multiple Births 0 Full Term 0 Induced 0 Spontaneous 0 Premature 0 Living 0 Ectopics 0 Total 0 Immunizations Vaccine Type Date Status Note Provider Nam e and Address Organization Details Recorded Time Hib, unspecified formulation 8 completed Carole [place] [facility] 08/29/2014 12:27:33 MMR 9 completed Carole [place] [facility] 08/29/2014 12:27:33 Hep B, unspecified formulation 7 completed Carole [place] [facility] 08/29/2014 12:27:33 HPV, quadrivalent 1 completed Carole [place] [facility] 08/29/2014 12:27:33 DTaP 8 completed Carole [place] [facility] 08/29/2014 12:27:33 MMR 3 completed Carole Santos [place] [facility] 08/29/2014 12:27:33 DTaP 8 completed Carole [place] [facility] 08/29/2014 12:27:33 influenza, unspecified formulation 5 completed Carole Santos [place] [facility] 08/29/2014 12:27:33 DTaP 8 completed Carole Santos [place] [facility] 08/29/2014 12:27:33 IPV 8 completed Carole Santos [place] [facility] 08/29/2014 12:27:33 HPV, quadrivalent 1 completed Carole Santos [place] [facility] 08/29/2014 12:27:33 Hib, unspecified formulation 8 completed Carole [place] [facility] 08/29/2014 12:27:33 varicella 8 completed Carole [place] [facility] 08/29/2014 12:27:33 IPV 9 completed Carole [place] [facility] 08/29/2014 12:27:33 Hep A, ped/adol, 2 dose 9 completed Carole [place] [facility] 08/29/2014 12:27:33 Tdap 8 completed Carole [place], [place] [facility] 08/29/2014 12:27:33 varicella 2 completed Carole [place] [facility] 08/29/2014 12:27:33 DTaP 9 completed [place] [facility] 08/29/2014 12:27:33 Hep B, unspecified formulation 9 completed Carole [place] [facility] 08/29/2014 12:27:33 Hib, unspecified formulation 8 completed [place] [facility] 08/29/2014 12:27:33 Hib, unspecified formulation 9 completed [place] [facility] 08/29/2014 12:27:33 HPV, quadrivalent 9 completed Carole [place] [facility] 08/29/2014 12:27:33 meningococcal MCV4, unspecified formulation 4 completed [place] [facility] 08/29/2014 12:27:33 Hep B, unspecified formulation 8 completed Carole [place] [facility] 08/29/2014 12:27:33 DTaP-IPV 3 completed Carole [place] [facility] 08/29/2014 12:27:33 IPV 8 completed Carole Santos [place] [facility] 08/29/2014 12:27:33 meningococcal MCV4, unspecified formulation 9 completed Carole Santos [place] [facility] 08/29/2014 12:27:33 Hep A, ped/adol, 2 dose 8 completed Carole Santos [place] [facility] 08/29/2014 12:27:33 Past Encounters Encounter ID Performer Location Encounter Start Date Encounter Closed Date Diagnosis/Indication Diagnosis SNOMED-CT Code Diagnosis ICD10 Code Diagnosis Note [id number] MD Prateek Haney (Peds) [address] [place] [address] 09/06/2014 09:19:33 09/06/2014 10:49:19 Onychomycosis 555454240 Menorrhagia [id number] di khoa of menses, wants different form of hormones ,than pills will put pt on provera 10mg on day 14th of her lmp for 2 wk and see how her periods is, pt will get appt with gynecologi st for further rx [id number] MD Prateek Cleaning (LABORATORY MECHANIC HELPER) [address] [facility] [place] [address] 11/29/2014 10:18:53 11/29/2014 14:49:22 Venereal disease screening [id number] RTO one week for results. Contraception care [id number] control options discussed. Pt. desires the Mirena IUD. Benefits, risks, and alternativ es to the Mirena IUD d/w pt. Pt. expressed understand ing. All pt. questions answered. UPT was negative today. RTO 2 weeks for repeat UPT and Miena IUD insertion. [id number] MD Kimberly Cleaninghalto (LABORATORY MECHANIC HELPER) [address] [place] [address] 12/19/2014 17:01:53 12/21/2014 14:52:50 Chlamydial vulvovaginitis [id number] Diagnosis d/w pt. Rx sent to pharmacy. Instructio lissette discussed. RTO 3 weeks for SHAJI. Pt. instructed to have her partner(s) tested and treated and no sex until they both get a negative SHAJI. Pt. expressed understand ing and agreement. Candidal vulvovaginitis [id number] Diagnosis d/w pt. Rx sent to pharmacy. Mariah mclaughlin discussed. [id number] MD Kimberly Cleaninghalto (LABORATORY MECHANIC HELPER) [address] [place] [address] 01/02/2015 13:52:46 01/02/2015 14:31:24 Chlamydial vulvovaginitis [id number] Vaginal culture sent. Pt. instructed to have her partner(s) tested and treated and no sex until they both get a negative SHAJI. Pt. expressed understand ing and agreement. Boyfriend will go to the health department in [place] for testing and treatment. Directions given. Contraception care [id number] Pt. still wants the Mirena IUD. UPT negative today. RTO 2 weeks for Mirena IUD insertion if SHAJI is negative. [id number] [facility] ([facility]ORATORY MECHANIC HELPER) [address] [place] [address] 01/16/2015 14:53:13 01/24/2015 13:51:35 Insertion of intrauterine contraceptive device [id number] Benefits, risks, and alternativ es to Mirena IUD d/w pt. Pt. expressed understand ing. All pt. questions answered. Consent signed and in chart. UPT was negative two weeks ago and today. SHAJI for Chlamydia was negative two weeks ago. Mirena IUD was inserted per protocol and without difficulty . Please see procedure note for details. Pt. tolerated the procedure well. She was instructed to use a backup method of contracept ion for 2 weeks and to have the device removed in 5 years. A reminder card was given. RTO 2 mo for string check. Contracept ion care management [id number] MD Prateek Cleaning (LABORATORY MECHANIC HELPER) [address] [place] [address] 03/19/2015 15:38:21 03/19/2015 17:36:51 IUD check [id number] In place. RTO PRN + 11/2015 for annual STD screening. [id number] MD Prateek Cleaning (LABORATORY MECHANIC HELPER) [address] [facility] [address] 08/20/2015 11:30:35 08/20/2015 12:44:48 Candidal vulvovaginitis 59509342 B37.3 Diagnosis d/w pt. Rx sent to pharmacy. Instructio ns discussed. Bacterial vaginosis [id number] N76.0 Diagnosis d/w pt. Rx sent to pharmacy. Instructio ns discussed. Culture sent. Health Concerns Section Related Observation LastModified by Organization Detai ls LastModified Time None Recorded Concern Status LastModified by Organization Details LastModified Time None Recorded Advance Directives Directive None Recorded Payers Insurance Date Sequence Insurance Name Policy Number Policy Howard Covered Member ID Howard Member ID Guarantor Name 03/19/2015 1 [facility] PRIOR TO 01/23/2021 (MEDICAID REPLACEMENT - HMO) Radha Irene [id number] Ioana Irene 04/08/2016 1 [facility] PRIOR TO 01/23/2021 (MEDICAID REPLACEMENT - HMO) Radha Irene [id number] Ioana Irene OBGyn Episode No OBEpisode recorded.
== END 2025-02-20 16:03 | disposition home or self-care (01) ==
PROVIDERS: PCP Emergency Medicine; Visit Provider Emergency Medicine
DX: R10.30 Lower abdominal pain, unspecified (principal)
CPT/HCPCS: 74177; Q9967